=== PATIENT | male | born 1945 | race Asian ===

== ENCOUNTER 2016-08-12 00:41 | Day surgery (SDC) | payer MEDICARE, OTHER ==
[2016-08-12] VITALS (19 sets, daily range): BP systolic 121–156; BP diastolic 55–79; PULSE 43–60; RESP 12–18; O2SAT 95–99
[~2016-08-12] VITALS: Ht 175.3 cm; Wt 75.8 kg
[~2016-08-12 00:41] MED LIST: ASPI-628 PO; LISI10TA PO; METF500T7 PO; METF850T2 PO; METO25TA6 PO; NITR0.4T SL; SIMV40TA5 PO; ZOLP10TA5 PO
[2016-08-12] MEDS: 0.9% Sodium Chloride 1,000 ML IV SCH ×2 (07:35→17:36)
[2016-08-12] MEDS ORDERED: Atropine 1 mg/10 mL (Code) Syringe ONE ×2 (11:33→13:11)
[2016-08-12 11:40] LABS: BASOPHILS % (AUTO) 1.5 % (0-3); EOSINOPHILS % (AUTO) 3.4 % (0-5); MONOCYTES % (AUTO) 12.9 % (4-12); Mean Corpuscular Hemoglobin 30.8 pg (27.0-35.0); Mean Corpuscular Volume 91.8 fL (81-100); NEUTROPHILS % (AUTO) 51.6 % (40-74); Platelet Count 169 bil/L (150-400)
--- NOTE | 2016-08-12 12:07 | NUR ---
SKINNY admit to [facility] at 1100 for heart catheterization. at bedside. patient denies pain. C/O cough for 1 week. HL X 2 placed and labs obtained. HR 30-50. ECG12 done. MD notified. Consent in chart and confirmed. History and medication reviewed. Pre-procedure teaching done and questions answered.
[2016-08-12] MEDS ORDERED: Heparin 1,000 Units/500 mL NS Premix IV ONE (12:14)
[2016-08-12] MEDS ORDERED: Heparin 5,000 Units/500 mL NS Premix IV ONE ×2 (12:15→14:07)
[2016-08-12] MEDS ORDERED: fentaNYL-PF 50 mCg/mL 2 mL Inj ONE (13:22)
[2016-08-12] MEDS ORDERED: Nitroglycerin 50,000 mcg/250 mL D5W Premix IV ONE (13:49)
[2016-08-12] MEDS ORDERED: Heparin 1,000 Unit/mL 10 mL Inj ONE (13:50)
[2016-08-12] MEDS ORDERED: Lidocaine 1%-Epi 1:100,000 20 mL Inj ONE (15:11)
--- NOTE | 2016-08-12 15:22 | NUR ---
Returned from geotechnical laboratory technician with a single Stent to his LAD. Track ooze from Right femoral - Star closure ooze and anticoagulation. Manual pressure held - for 5 minutes - no improvement - Lido with Epi injected by Eun - infrastructure technician at 1520. NSB no pain and no ectopy. at bedside and understands plan of care. BR for 2.5 hours post procedure with a planned overnight stay.
--- NOTE | 2016-08-12 17:17 | NUR ---
SKINNY Patient care assumed at 1545. No bleeding or hematoma at right groin starclose. Pedal pulses present. at bedside. Patient denies pain. Sleeping but wakes to voice. Transferred by bed to room 2002 at 1715. Report called to receiving RN.
--- NOTE | 2016-08-12 17:42 | NUR ---
Admit to PCC Pt admitted to PCC room 2002. Brought up to room in a bed. Report received from Johnna TELLEZ in [facility]. Pt alert and oriented, slightly hard of hearing. Denies pain, right groin with star closure, site pink soft, non-tender. Dressing is a bio-occlusive with gauze, slight amount of sanguinous drainage on gauze. Per RN the amount has not changed in the last hour since she took over pt care. Pt is on bedrest until 1750.
--- NOTE | 2016-08-12 17:54 | PCM.CVCATH ---
Cardiac Cath Report Date of Service Aug 12, 2016 Primary Indication Abnormal myocardial perfusion study showing moderate reversible ischemia. Procedure 1. Left heart catheterization 2. Selective coronary angiogram 3. Right femoral angiogram 4. Left ventricular angiogram Vascular Access Right common femoral artery Procedure Details The patient was brought into the catheterization laboratory. The patient was nothing by mouth since midnight. The patient was prepped and sterilized in the appropriate fashion. Local anesthetic was given to the right groin region with lidocaine 1%. A percutaneous stick to the right groin region with an 18-gauge Seldinger needle was attempted. A 6 Serbian sheath was inserted into the right femoral artery. A 6 Serbian FL 4 diagnostic catheter was advanced and engaged into the left main. The left coronary angiography was performed in multiple views. The catheter was exchanged over the wire for a 6 Serbian FR4 diagnostic catheter. The catheter was engaged in the right coronary ostium and the right coronary angiography was performed in multiple views. The catheter was removed over the wire and exchanged for 6 Serbian angle pigtail catheter. LV hemodynamics were recorded. LV pullback was performed. All catheters were removed. The case was handed over to Dr. Coates for elective PCI. The right femoral angiogram was performed to evaluate for closure device. Hemostasis was obtained with Star close. The patient was transferred back to special observation unit for post procedural monitoring. There were no immediate complications. Total fluoroscopy time: 6.1 minutes Total fluoroscopy dosage: 1265 mGy Estimated blood loss: 15 mL Total contrast: 160 mL Findings 1. Hemodynamics: The left ventricular systolic pressure was estimated at 146 mmHg and the left ventricular end-diastolic pressure was estimated at 18 mmHg. There is no significant gradient during pullback. The aortic system pressure was 145/63 mmHg 2. Selective coronary angiography: A. Left main: The artery has minimal ostial disease. Otherwise it bifurcates into the left anterior and left circumflex arteries. B. Left anterior descending artery: The proximal portion there is a 95% stenosis that begins just before the proximal portion of the previous drug- eluting stent and extends at least into the midportion of the stent.. In the midportion of the LAD there are mild luminal irregularities. There is no evidence of significant disease in the distal portion but there is evidence of competitive flow. The first major diagonal artery has at least moderate proximal stenosis estimated around 60-70%. The second major diagonal artery has a 80% ostial stenosis. C. Left circumflex artery: Along the proximal portion there is no evidence of significant disease. There is a high takeoff obtuse marginal artery that has moderate moderate diffuse disease. The second obtuse marginal artery has a 50- 60% mid stenosis. Moving along the left circumflex artery there is no evidence of significant disease elsewhere. The artery provides the posterior descending artery making this a codominant vessel. The posterior descending artery has no evidence of significant disease. D. Right coronary artery: The right coronary artery has no evidence of critical disease. There is mild diffuse disease throughout the entire vessel. The distal portion of the RCA provides collaterals to the distal LAD. 5. Right femoral angiogram: There is evidence for mild disease at the ostium of the superficial femoral artery. Summary 1. Critical stenosis in the proximal portion of the LAD which begins at the proximal portion of the previous drug-eluting stent. 2. Moderate disease within a diagonal artery vessel as well as an obtuse marginal vessel. 3. Minimal disease at the ostium of the left main. 4. Right to left collaterals from the distal RCA. 5. Elevated LVEDP Recommendations The case was reviewed with Dr. Coates and he agreed to proceed with elective PCI of the proximal LAD. Dr. Davis Rasmussen assisted during the case. The case ended with 2 drug-eluting stents into the LAD. Subsequent angiogram shows excellent results. The patient will be kept overnight and discharge if clinically stable. The patient did come in with significant bradycardia hence we will hold his metoprolol and reviewed his vital signs next week when he gives us a call. We may consider restarting metoprolol tartrate 25 mg twice a day. At a later date we will consider switching his simvastatin to Crestor. The patient has attempted atorvastatin in the past but suffered significant elevated LFTs. Patient was also hypertensive and I would like to increase his lisinopril to 20 mg once a day in the context of his diabetes, hypertension, and cardiac disease. copies to: Fredy Peck Oscar J MD Aug 12, 2016 17:54
[2016-08-12] MEDS ORDERED: 0.9% Sodium Chloride 400 ML (4 HRS) IV ONE (18:30)
[2016-08-12] MEDS ORDERED: 0.9% Sodium Chloride 250 ML BOLUS IV PRN (18:30)
[2016-08-12] MEDS ORDERED: Sodium Chloride LOK Flush 10 mL Syringe IVFLUSH PRN (18:30)
[2016-08-12] MEDS ORDERED: Atropine 1 mg/10 mL (Code) Syringe IVPUSH PRN (18:30)
[2016-08-12] MEDS ORDERED: Ondansetron 2 mg/mL 2 mL Inj IVPUSH PRN (18:30)
[2016-08-13 00:24] VITALS: BP 140/72; PULSE 48; RESP 18; O2SAT 97
--- NOTE | 2016-08-13 02:50 | NUR ---
Tele/Groin Site Saline Locked after 400 Ml NS. voiding , independent to toilet, A&O x3 using call light appropriately, no C/O pain , Groin-site dressing CDI, no inflammation,swelling, drainage. in room assisting w ADL. Telemetry; Sinus Chance to Sinus 60 .
[2016-08-13] MEDS: 0.9% Sodium Chloride 1,000 ML IV SCH (03:35)
[2016-08-13 04:10] VITALS: BP 118/61; PULSE 44; RESP 18; O2SAT 96
--- NOTE | 2016-08-13 07:59 | PCM.DIMED ---
Discharge Instructions Date of Service Aug 13, 2016 Dates of Hospitalization 08/12/2016 Discharge Diagnosis Discharge Diagnosis CAD, s/p DESx2 placement to LAD, Hypertension, Hyperlipidemia Medication Instructions Please take all medications as prescribed. Please take Plavix (Clopidogrel) 75 mg one tablet daily at least one year. It is very important because you had stent placements STOP taking Metoprolol. We increased the dose of Lisinopril to 20 mg daily. Please restart taking Metformin on 08/15/2016. Diet Low fat, Low Sodium, Heart Healthy, Diabetic Activity Other (see below) Call your provider Shortness of breath, Bleeding, Chest pain Patient Instructions No car driving for couple of days; you can take shower starting today; do not soak in bath tub for one week, no heavy lifting, no more than 7-10 lb for one week, otherwise be physically active as tolerated. Please do blood work: CMP and CBC on 08/20/2016. Provider: Aravind Jones MD Follow-up in: 4 weeks Jovany Rocha PA-C Aug 13, 2016 07:59
[2016-08-13] MEDS ORDERED: CLOP75TA28 PO (08:08)
[2016-08-13] MEDS ORDERED: LISI-567 PO (08:08)
[2016-08-13 08:12] VITALS: BP 174/62; PULSE 47; RESP 12; O2SAT 99
--- NOTE | 2016-08-13 08:15 | NUR ---
BP Cardiology aware of SBP 174 this am. Right groin w/o bleeding or hematoma. CMS intact to RLE.
--- NOTE | 2016-08-13 08:28 | PCM.DC.MED ---
Discharge Summary Date of Service Aug 13, 2016 Dates of Hospitalization Date of Hospital Admission 08/12/2016 Date of Discharge: September 12, 2016 Providers: Admitting Physician: Primary Care Physician: Fredy Peck DO Attending Physician: Aravind Jones MD Diagnosis at Time of Discharge Diagnosis at Time of Discharge CAD, s/p DESx2 placement to LAD, Hypertension, Hyperlipidemia Procedures ECG 12 Lead Today on telemetry sinus rhythm with HR in 60s, no dysrhythmia Brief History This is a very pleasant 70 y/o gentleman with h/o CAD, DM, HTN, HLD who on 08/12 had elective coronary angiography after abnormal myocardial perfusion study. Hospital Course He had critical stenosis in the proximal portion of the LAD at the proximal portion of the previous drug-eluting stent; had moderate disease within a diagonal artery vessel as well as an obtuse marginal vessel; had minimal disease at the ostium of the left main. He had elective PCI of the proximal LAD with 2 drug-eluting stents placements. The patient tolerated procedure well. He has been ambulating freely. Does not have pain in right groin area (site of cardiac cath access); right groin area is nontender with palpation, no bleeding, no hematoma, no bruits with auscultation. He denies having chest discomfort or MANUEL; he does not have symptoms on nocturnal pulmonary congestion; he is euvolemic on exam He was bradycardic and his Metoprolol was held. He was hypertensive and his Lisinopril dose was increased to 20 mg daily. I explained to the patient the importance of taking clopidogrel daily at least one year. Medications on discharge are below Exam Vital Signs (Last) Date Time Temp Pulse Resp B/P Pulse Ox O2 Delivery O2 Flow Rate FiO2 08/13/16 08:12 36.8 47 12 174/62 99 Room Air Exam General: no acute distress ENT: MMM, sclera anicteric Neck: supple, no thyromegaly Pulmo: normal breathing sounds bilaterally, no crackles, no wheezing Cardio: RRR, normal S1 & S2, no murmur appreciated Abdomen: nontender with palpation Extremities; peripheral pulses preserved, no LE edema Neuro: A&Ox3, no gross abnormalities Test 08/12/16 11:38 08/13/16 02:34 White Blood Count 5.3th/mm3 (3.8-10.1) Red Blood Count 4.77mil/mm3 (4.40-5.80) Hemoglobin 14.7g/dL (13.8-17.2) Hematocrit 43.8% (41.0-50.0) Mean Corpuscular Volume 91.8fL (81-100) Mean Corpuscular Hemoglobin 30.8pg (27.0-35.0) Mean Corpuscular Hemoglobin Concent 33.6% (32.0-37.0) Red Cell Distribution Width 12.7% (12.3-15.4) Platelet Count 169bil/L (150-400) Neutrophils (%) (Auto) 51.6% (40-74) Lymphocytes (%) (Auto) 30.2% (14-46) Monocytes (%) (Auto) 12.9% (4-12) Eosinophils (%) (Auto) 3.4% (0-5) Basophils (%) (Auto) 1.5% (0-3) Sodium Level 139mEq/L (134-144) Potassium Level 4.6mEq/L (3.5-5.2) Chloride Level 104mEq/L (97-108) Carbon Dioxide Level 22mmol/L (18-29) Blood Urea Nitrogen 19mg/dL (8-27) Creatinine 0.91mg/dL (0.76-1.27) Estimat Glomerular Filtration Rate 87mL/min (>59) Glucose Level 139mg/dL (60-99) Calcium Level 8.4mg/dL (8.5-10.1) Discharge Medications Discharge Medications Aspirin (Aspir 81) 81 Mg Tablet.dr 81 MG PO DAILY (Reported) Clopidogrel (Clopidogrel) 75 Mg Tablet 75 MG PO DAILY Prescribed by: ANITA MIRANDA Lisinopril (Lisinopril) 20 Mg Tablet 20 MG PO DAILY Prescribed by: ANITA MIRANDA Metformin (Metformin) 850 Mg Tablet 850 MG PO DINNER (Reported) Metformin ER (Metformin ER) 500 Mg Tab 500 MG PO AM (Reported) Simvastatin (Simvastatin) 40 Mg Tablet 40 MG PO HS (Reported) As needed Nitroglycerin SL (Nitrostat) 0.4 Mg Tab.subl 0.4 MG SL Q5MIN PRN PRN For Chest Pain (Reported) Zolpidem (Zolpidem) 10 Mg Tablet 10 MG PO HS PRN PRN For Insomnia (Reported) Additional med instructions Please take all medications as prescribed. Please take Plavix (Clopidogrel) 75 mg one tablet daily at least one year. It is very important because you had stent placements STOP taking Metoprolol. We increased the dose of Lisinopril to 20 mg daily. Please restart taking Metformin on 08/15/2016. Followup Plan Discharge Diet: Low fat, Low Sodium, Heart Healthy, Diabetic Discharge Activity: Other (see below) Patient Instructions No car driving for couple of days; you can take shower starting today; do not soak in bath tub for one week, no heavy lifting, no more than 7-10 lb for one week, otherwise be physically active as tolerated. Please do blood work: CMP and CBC in one week. Provider: Aravind Jones MD Follow-up in: 4 weeks Jovany Rocha PA-C Aug 13, 2016 08:28
[2016-08-13 10:25] VITALS: PULSE 52
[2016-08-13 10:27] VITALS: PULSE 70; RESP 16
--- NOTE | 2016-08-13 12:23 | NUR ---
Discharge Pt left with at 1215 via private car. Tele and IVx2 removed. BP still elevated at 166/[address] Coates pt able to still go home. Changes to medications gone over and understood. All questions answered. All belongings taken with.
--- NOTE | 2016-08-27 13:07 | DI95 ---
[address] [address] INTERVENTIONAL CARDIAC CATHETERIZATION PATIENT: CRISTIANA WILKERSON : 1945 MR#: [id number] ADMIT: 08/12/2016 JOB ID: [id number] DATE OF SERVICE: 08/12/2016 PROCEDURE: Percutaneous intervention on LAD. INDICATION: In-stent restenosis. PROCEDURAL DETAILS: These are enumerated in the procedure log to which the reader and the coders are referred. Briefly a Voda guide and a Run-through wire was used to cross this lesion. It was pre-dilated and then stented with a 3.5 x 23 mm Xience drug-coated stent. This stent extended from proximal to mid LAD. Final angiographic results were excellent with no side branch loss. The patient is advised to stay on dual antiplatelet therapy for at least six months post procedure.
== END 2016-08-13 12:13 | disposition home or self-care (01) ==
LOC: SOUO 00:41 → PCC 16:56 → SOUO 08-13 12:13
PROVIDERS: ATTEND Internal Medicine Cardiovascular Disease
DX: I25.10 Atherosclerotic heart disease of native coronary artery without angina pectoris (principal); T82.855A Stenosis of coronary artery stent, initial encounter; I25.5 Ischemic cardiomyopathy; E11.9 Type 2 diabetes mellitus without complications; I10 Essential (primary) hypertension; Z95.5 Presence of coronary angioplasty implant and graft; E78.5 Hyperlipidemia, unspecified; Z79.84 Long term (current) use of oral hypoglycemic drugs; Z79.82 Long term (current) use of aspirin; Z87.891 Personal history of nicotine dependence; Y84.8 Other medical procedures as the cause of abnormal reaction of the patient, or of later complication, without mention of misadventure at the time of the procedure
CPT/HCPCS: 36415; 80048; 85025; 93005; 93458; 99152; 99153; C1725; C1760; C1769; C1874; C1887; C9600; J1644; J2250; J3010; J7030; Q9967